=== PATIENT | female | born 1995 | race Caucasian/White ===

== ENCOUNTER → 2016-04-24 | Outpatient (CLI) | payer OTHER ==
--- NOTE | 2016-04-24 12:51 | KCIC ---
Examination: MRI of the right knee without contrast. HISTORY History of right knee strain, pain for to straighten, felt a pop under. COMPARISON None available. TECHNIQUE Multiplanar, multisequence MR imaging of the right knee was performed without contrast Findings: The anterior cruciate ligament, posterior cruciate ligament appear intact. The medial meniscus, lateral meniscus appears intact. The medial collateral ligament is intact.The lateral collateral ligamentous complex including the fibular collateral ligament, biceps femoris tendon, popliteus tendon appear intact. Small knee joint effusion is identified. The extensor mechanism is intact. There is mild increased T2 signal identified in the prepatellar region within the soft tissue could be soft tissue injury or bursitis. The medial retinaculum, lateral retinaculum appear intact. There is minimum fraying of cartilage identified in the patellar trochlear region. The cartilage in the medial, lateral compartment grossly appears intact. IMPRESSION - Mild increased T2 signal identified just superficial to patella likely prepatellar bursitis or due to soft tissue injury. - Small knee joint effusion. - Grade 1 chondromalacia patella. Electronically signed by: Tray Mccloud (Apr 24, 2016 12:50:27)
== END | disposition home or self-care (01) ==
LOC: KCIC MRI 10:05
PROVIDERS: ATTEND Family Medicine
DX: S83.401A Sprain of unspecified collateral ligament of right knee, initial encounter (principal); M22.41 Chondromalacia patellae, right knee; M25.461 Effusion, right knee
CPT/HCPCS: 73721

== ENCOUNTER → 2021-03-14 | Outpatient (CLI) | payer BC ==
--- NOTE | 2021-03-14 12:09 | KCIC ---
Examination: MRI of the left knee without contrast HISTORY: History of left knee pain medially COMPARISON: None available Technique: Multiplanar, multisequence MR imaging of the left knee was performed without contrast. FINDINGS: Mild increased T2 signal identified in the anterior cruciate ligament. The posterior cruciate ligamen t appears intact. The medial meniscus appears intact. Lateral meniscus appears intact. The medial col lateral ligament is intact. Lateral collateral ligamentous complex including the fibular collateral i s comparison from grossly unremarkable. There is intact. The extensor mechanism appears intact. Small knee joint effusion. The medial, latera l retinaculum appears intact. Minimal superficial fraying of cartilage identified in the patella. IMPRESSION: 1.Mild increased T2 signal identified in the anterior cruciate ligament probably mild sprain. 2. Mild grade I chondromalacia patella. 3. Small knee joint effusion. Electronically signed by: Tray Mccloud MD (03/14/2021 12:07 PM) [id number]
== END ==
LOC: KCIC MRI 10:59
PROVIDERS: ATTEND Physician Assistant Medical
DX: M22.42 Chondromalacia patellae, left knee (principal); M25.462 Effusion, left knee; M25.862 Other specified joint disorders, left knee
CPT/HCPCS: 73721